=== PATIENT | male | born 1970 | race Caucasian/White ===

== ENCOUNTER 2017-01-17 16:11 | Observation (INO) | payer BC, OTHER ==
--- NOTE | 2017-01-17 16:26 | CPEKG ---
Heart Rate: 65 RR Interval: 923 P-R Interval: 168 QRSD Interval: 86 QT Interval: 384 QTC Interval: 400 P Greer: 54 QRS Greer: 70 T Wave Greer: 20 EKG Severity - ABNORMAL ECG - EKG Impression: SINUS RHYTHM EKG Impression: CONSIDER LEFT VENTRICULAR HYPERTROPHY Electronically Signed By: Dhaval Carroll 17-Jan-2017 19:31:01
[2017-01-17 17:01] LABS: % IMMATURE GRANULYOCYTES 0.4 % (0.0-1.1); ABSOLUTE IMMATURE GRANULOCYTES 0.03 10^3/uL (0.00-0.10); ADD DIFF? NO; ADD MORPH? NO; ADD SCAN? NO; ATYPICAL LYMPHOCYTE FLAG 10 (0-99); FRAGMENT RBC FLAG 0 (0-99); HEMATOCRIT 44.4 % (40.0-51.0); HEMOGLOBIN 15.4 g/dL (13.7-17.5); LEFT SHIFT FLG 0 (0-99); LIPEMIA HEMOLYSIS FLAG 90 (0-99); MEAN CELL HEMOGLOBIN 31.2 pg (27.9-34.1); MEAN CELL HEMOGLOBIN CONCENTR. 34.7 g/dL (32.4-36.7); MEAN CELL VOLUME 90.1 fL (81.5-99.8); MEAN PLATELET VOLUME 10.8 fL (8.7-11.7); PLATELET CLUMPS FLAG 0 (0-99); PLATELET COUNT 210 10^3/uL (150-400); RED BLOOD CELL COUNT 4.93 10^6/uL (4.40-6.38); RED CELL DISTRIBUTION WIDTH 11.9 % (11.5-15.2)
--- NOTE | 2017-01-17 17:01 | EDPHY ---
H & P Time Seen by Provider: 01/17/17 16:42 HPI/ROS: CHIEF COMPLAINT: Chest pressure HISTORY OF PRESENT ILLNESS: This 46-year-old man presents with chest discomfort after running at lunch for about 45 min at 11:30 a.m.. Afterwards he said he usually feels good but today he felt "off "and a little bit lightheaded. He was mild shortness of breath like he was "at high altitude " and had some tingling in his left small finger. He describes pressure in his left chest radiating to his back like a "pulled muscle "this started all around 12:45 p.m.. Patient says symptoms are almost gone now. Not better worse with deep breathing but a little bit better when he fully extends his back. Not associated with cough or hemoptysis or leg swelling or fever or chills. Radiation to the left little finger as described above. REVIEW OF SYSTEMS: Eye: no change in vision ENT: no sore throat Cardiac: HPI no palpitations or syncope Pulmonary: No coughing or hemoptysis Abdomen: no vomiting, diarrhea, abdominal pain Musculoskeletal: no back pain Skin: no rash Neuro: no headache Constitutional: no fever : no urinary symptoms A comprehensive 10 point review of systems is otherwise negative aside from elements mentioned in the history of present illness. PAST MEDICAL HISTORY: Cholesterol around 200. Denies hypertension or diabetes. Testicular cancer 10 years ago. Social history: No cocaine or tobacco. Recent travel return from [place] 5 days ago by car. General Appearance: Alert and conversant, cooperative. Eyes: No scleral icterus. ENT, Mouth: Normal mucous membranes. Respiratory: Normal respiratory effort, breath sounds equal, lungs are clear to auscultation. Cardiovascular: Regular rate and rhythm. Gastrointestinal: Abdomen is soft and non tender. Neurological: Alert and oriented x3. Normally conversant. Face symmetric, normal movement and sensation in all extremities. Skin: Warm and dry, no rashes. Musculoskeletal: No peripheral edema and no joint swelling. No calf tenderness. Psychiatric: Not agitated. Emergency Department course/MDM: Plan EKG, chest x-ray, troponin and D-dimer. 1803: D-dimer less than 0.5, low pretest probability for pulmonary embolism. Troponin noted at 0.019, 3 hr troponin discussed with the patient. 2038: Discussed with cardiology Dr. Babb, recommends admit and cycle troponins, inpatient evaluation. 2049: Have discussed with the patient who is amenable, oral aspirin given. Maria De Jesus at 2055 will admit. Smoking Status: Never smoked Constitutional: Initial Vital Signs Temperature (C) 37.0 C 01/17/17 16:14 Heart Rate 68 01/17/17 16:14 Respiratory Rate 16 01/17/17 16:14 Blood Pressure 142/85 H 01/17/17 16:14 O2 Sat (%) 98 01/17/17 16:14 O2 Delivery Mode Room Air Allergies/Adverse Reactions: No Known Allergies Allergy (Unverified 01/17/17 16:14) Home Medications: Medication Instructions Recorded NK [No Known Home Meds] 01/17/17 Medical Decision Making - Diagnostics EKG Interpretation: 12-lead EKG interpreted by me; official reading is in trace master. My interpretation is sinus rhythm with LVH at 65, no acute ischemic changes. 193: 12-lead EKG interpreted by me; official reading is in trace master. My interpretation is sinus rhythm with probable early repolarization and LVH. Rate 54 Imaging Results: Imaging Impressions Chest X-Ray 01/17/17 16:58 Impression: No acute findings in the chest. Differential Diagnosis: Differential diagnosis considered for chest pain including but not limited to myocardial ischemia, aortic dissection, pericarditis, pulmonary embolus, chest wall pain, pleural inflammation and pulmonary infectious causes. - Data Points Laboratory Results: Laboratory Results 01/17/17 16:32 01/17/17 16:32 01/17/17 01/17/17 01/17/17 19:31 17:13 16:32 WBC RBC Hgb Hct MCV MCH MCHC RDW Plt Count MPV Neut % (Auto) Lymph % (Auto) [place] % (Auto) Eos % (Auto) Baso % (Auto) Nucleat RBC Rel Count Absolute Neuts (auto) Absolute Lymphs (auto) Absolute Monos (auto) Absolute Eos (auto) Absolute Basos (auto) Absolute Nucleated RBC Immature Gran % Immature Gran # D-Dimer 0.39 ug/mLFEU ug/mLFEU (0.00-0.50) Sodium 141 mEq/L mEq/L (134-144) Potassium 4.1 mEq/L mEq/L (3.5-5.2) Chloride 99 mEq/L mEq/L (97-110) Carbon Dioxide 28 mEq/l mEq/l (22-31) Anion Gap 14 mEq/L mEq/L (8-16) BUN 14 mg/dL mg/dL (7-23) Creatinine 1.0 mg/dL mg/dL (0.7-1.3) Estimated GFR > 60 Glucose 88 mg/dL mg/dL (70-100) Calcium 9.6 mg/dL mg/dL (8.5-10.4) Troponin I 0.028 ng/mL ng/mL 0.019 ng/mL ng/mL (0.000-0.034) (0.000-0.034) 01/17/17 16:32 WBC 7.90 10^3/uL 10^3/uL (3.80-9.50) RBC 4.93 10^6/uL 10^6/uL (4.40-6.38) Hgb 15.4 g/dL g/dL (13.7-17.5) Hct 44.4 % % (40.0-51.0) MCV 90.1 fL fL (81.5-99.8) MCH 31.2 pg pg (27.9-34.1) MCHC 34.7 g/dL g/dL (32.4-36.7) RDW 11.9 % % (11.5-15.2) Plt Count 210 10^3/uL 10^3/uL (150-400) MPV 10.8 fL fL (8.7-11.7) Neut % (Auto) 69.5 % % (39.3-74.2) Lymph % (Auto) 19.9 % % (15.0-45.0) [place] % (Auto) 8.4 % % (4.5-13.0) Eos % (Auto) 1.5 % % (0.6-7.6) Baso % (Auto) 0.3 % % (0.3-1.7) Nucleat RBC Rel Count 0.0 % % (0.0-0.2) Absolute Neuts (auto) 5.50 10^3/uL 10^3/uL (1.70-6.50) Absolute Lymphs (auto) 1.57 10^3/uL 10^3/uL (1.00-3.00) Absolute Monos (auto) 0.66 10^3/uL 10^3/uL (0.30-0.80) Absolute Eos (auto) 0.12 10^3/uL 10^3/uL (0.03-0.40) Absolute Basos (auto) 0.02 10^3/uL 10^3/uL (0.02-0.10) Absolute Nucleated RBC 0.00 10^3/uL 10^3/uL (0-0.01) Immature Gran % 0.4 % % (0.0-1.1) Immature Gran # 0.03 10^3/uL 10^3/uL (0.00-0.10) D-Dimer Sodium Potassium Chloride Carbon Dioxide Anion Gap BUN Creatinine Estimated GFR Glucose Calcium Troponin I Medications Given: Discontinued Medications Aspirin (Aspirin) 324 mg PO EDNOW ONE Stop: 01/17/17 20:51 Last Admin: 01/17/17 20:53 Dose: 324 mg Aspirin (Aspirin) 324 mg PO EDNOW ONE Stop: 01/17/17 20:51 Last Admin: 01/17/17 20:51 Dose: Not Given Departure - Departure Disposition: [facility] Inpatient Acute Clinical Impression: Chest pain Qualifiers: Chest pain type: unspecified Qualified Code(s): R07.9 - Chest pain, unspecified Condition: Good
[2017-01-17 17:11] LABS: ANION GAP 14 mEq/L (8-16); CALCIUM 9.6 mg/dL (8.5-10.4); CARBON DIOXIDE 28 mEq/l (22-31); CHLORIDE 99 mEq/L (97-110); GLOMERULAR FILTRATION RATE > 60; GLUCOSE 88 mg/dL (70-100); POTASSIUM 4.1 mEq/L (3.5-5.2); SODIUM 141 mEq/L (134-144)
[2017-01-17 17:23] LABS: TROPONIN I 0.019 ng/mL (0.000-0.034)
--- NOTE | 2017-01-17 19:38 | CPEKG ---
Heart Rate: 54 RR Interval: 1111 P-R Interval: 180 QRSD Interval: 92 QT Interval: 404 QTC Interval: 383 P [place]: 68 QRS [place]: 72 T Wave [place]: 39 EKG Severity - ABNORMAL ECG - EKG Impression: SINUS RHYTHM EKG Impression: CONSIDER LEFT VENTRICULAR HYPERTROPHY EKG Impression: ST ELEV, PROBABLE NORMAL EARLY REPOL PATTERN Electronically Signed By: Dhaval Carroll 17-Jan-2017 19:53:01
[2017-01-17] MEDS ORDERED: ASPIRIN 81 MG CHEWABLE TAB PO ONE ×2 (20:50)
[2017-01-17] MEDS ORDERED: ONDANSETRON DISINTEGRATING 4 MG TAB PO PRN (20:56)
[2017-01-17] MEDS ORDERED: ONDANSETRON 4 MG/2 ML VIAL IVP PRN (20:56)
[2017-01-17] MEDS ORDERED: ACETAMINOPHEN 325 MG TAB PO PRN (20:56)
--- NOTE | 2017-01-17 22:28 | GHP ---
[f rep st] HISTORY AND PHYSICAL DATE OF ADMISSION: 01/17/2017 CHIEF COMPLAINT: Chest pain. HISTORY OF PRESENT ILLNESS: A 46-year-old male with limited past medical history who reports having upper respiratory and GI illness recently which kept him from his normal running activity which avera ges approximately 25 miles a week. The patient had several days of rest related to the gastroenterit is and then got back to running today. Reports he went for a rather strenuous run. As he was comple ting his exercise, developed left-sided chest discomfort and a numbness sensation of his left small p inky. The patient had associated shortness of breath with these symptoms which prompted his evaluati on in the emergency department. During my evaluation, the patient's chest symptoms and finger numbne ss have resolved. He is feeling his normal self. No difficulty with breathing, dizziness, headache, changes in his bowels, urinary complaints, lower extremity edema, fevers or rashes. PAST MEDICAL HISTORY: Borderline hyperlipidemia. SOCIAL HISTORY: A 7-pack-year history of smoking. Quit 20 years ago. No alcohol. No illicit drugs or marijuana. FAMILY HISTORY: Negative for heart disease. REVIEW OF SYSTEMS: A 10-point review of systems are negative with the exception of what is reported in the HPI. PHYSICAL EXAMINATION: VITAL SIGNS: Blood pressure 124/84, heart rate 68, respiratory rate 16, 95% o n room air, 37.0. GENERAL: This is a very healthy-appearing, middle-aged male in no acute distress. HEENT: Notable for moist mucous membranes. Eyes: Negative for any icterus. CARDIAC: Patient is regular rate and rhythm. No murmurs, gallops, or rubs. PULMONARY: Clear to auscultation bilateral ly. GASTROINTESTINAL: Positive bowel sounds. ABDOMEN: Soft and nontender. MUSCULOSKELETAL: Nega tive for any lower extremity edema. SKIN: Negative for any rashes. NEUROLOGIC: He is alert and or iented x3. PSYCHIATRIC: He is pleasant and cooperative on interview and examination. LABORATORY DATA: White count 7.9, creatinine 1.0. Troponin is 0.019 to 0.028. EKG, which I personally reviewed and interpreted, shows sinus rhythm. No acute ST-T changes. Chest x-ray, which I personally reviewed and interpreted, shows no acute infiltrates or edema. ASSESSMENT AND PLAN: This is a 46-year-old male presenting with chest pain, post exertion. 1. Acute chest pain. The patient's only significant risk factor is remote tobacco for heart disease . Initial troponin is technically negative, although rising. EKG is also negative. The case was re viewed with Cardiology. Dr. Babb is requesting the patient be admitted for rule out and provocativ e testing in the morning. I have ordered a treadmill as I suspect the patient's troponins will remai n negative early this a.m. 2. Prophylaxis: Patient is ambulating. 3. Diet: Cardiac. 4. Disposition: I expect less than 2 midnights. I have discussed the case with the emergency room physician. Patient will be triaged to the PCU for stress testing. /[id number]/MODL
[2017-01-18 05:10] LABS: CHOLESTEROL 135 mg/dL (140-200); CHOLESTEROL/HDL RATIO 3.46 RATIO (1.00-4.97); HIGH DENSITY LIPOPROTEIN 39 mg/dL (40-65); LDL/HDL RATIO 2.05 RATIO (1.00-3.64); LOW DENSITY LIPOPROTEIN 80 mg/dL (70-100); NON-HIGH DENSITY LIPOPROTEIN 96 mg/dL (90-129); TRIGLYCERIDE 83 mg/dL (40-150); VERY LOW DENSITY LIPOPROTEINS 16 mg/dL (8-25)
[2017-01-18 05:18] LABS: TROPONIN I 0.015 ng/mL (0.000-0.034)
[2017-01-18 07:34] VITALS: BP 113/69; PULSE 59; RESP 17; TEMP 97.5; O2SAT 92
--- NOTE | 2017-01-18 09:03 | GCON ---
[f rep st] CONSULTATION CARDIAC CONSULTATION DATE OF CONSULTATION: 01/18/2017 CHIEF COMPLAINT: Arm pain, chest pain after running. HISTORY OF PRESENT ILLNESS: This is a 46-year-old gentleman with no known history of coronary artery disease and no significant risk factors, who usually runs 25 miles a week. He recently had a GI ill ness, had not run in over a week. Yesterday, at work, he went for a run at lunch and noted some exer tional left little finger numbness, he ran, as he describes as "hard," after returning to work he had some left shoulder blade pain which was on and on, and over the course of the next few hours had mauri e just diffuse fullness in his chest. He came to the emergency room for evaluation. EKG and exam we re normal. His troponin was mildly indeterminate. He has borderline hypertension as his only risk f actor. SOCIAL HISTORY: A very remote history of cigarette smoking 20 years ago. No alcohol or drug abuse i ssues. FAMILY HISTORY: Noncontributory. REVIEW OF SYSTEMS: A 10-point system is negative. The only recent thing going on was his upper GI i llness, which has resolved. Overnight he was admitted to the hospital and did well. His troponins have decreased. His cholester ol is 135, his HDL is 39, his LDL is 80. He has a normal creatinine. EKGs show normal sinus rhythm without ischemic changes or changes on serial evaluation. EXAM: VITAL SIGNS: Blood pressure is 120/65, his heart rate in the 70s. GENERAL: He is a middle-a ged male, in no acute distress. HEENT: Moist oropharynx. NECK/SHOULDERS: No palpable tenderness. LUNGS: Clear to auscultation. CARDIOVASCULAR: Regular rate and rhythm. Peripherally he had stron g pulses in his feet and in his hands. He had good strength in both arms as well. ABDOMEN: Soft, n ontender. ASSESSMENT: Atypical chest pain. At this point, no clear-cut indication of cardiac etiology. Renay monae has agreed to progress with an exercise stress test this morning. If this is normal he can be dis charged, to follow up with his primary care physician as indicated. At this point, I did answer many questions, and the patient is comfortable with this approach. He has normal exam and asymptomatic a t this time. /[id number]/MODL
[2017-01-18] MEDS ORDERED: PSEUDOEPHEDRINE HCL 30 MG TAB PO PRN (09:54)
--- NOTE | 2017-01-18 10:30 | CPR ---
[f rep st] NONINVASIVE CARDIAC PROCEDURE REPORT DATE OF PROCEDURE: 01/18/2017 PROCEDURE: Exercise treadmill test. INDICATION: The patient is a 46-year-old male, who presented to the hospital with chest pain. He is a very active individual and went for a run yesterday. Post exercise he developed chest discomfort and shortness of breath. He does note that he had an upper respiratory infection the week prior. He denies any history of hypertension, hyperlipidemia, diabetes, prior tobacco use or family history of premature coronary artery disease. His resting EKG revealed normal sinus rhythm with heart rate of 57, OR interval 162, QRS duration of 102, QTc of 421. He has nonspecific upsloping ST elevation at rest. The patient exercised on the [employer] for 11 minutes without any associated chest discomfort. The second stage of the Pacheco protoc ol was skipped. He remained in normal sinus rhythm throughout the procedure. He did develop upslopi ng ST depression in leads V4 and V5 at peak exertion which recovered immediately in the recovery phas e. His blood pressure at rest was 128/70 and increased appropriately peaking at 158/62. His blood p ressure recovered within 4 minutes of recovery. PLAN: Normal exercise treadmill test. /[id number]/MODL
--- NOTE | 2017-01-18 11:45 | ASMTCMCOM ---
CM Note CM Note Notes: Patient discharging home with no additional apparent Case management needs at this time. Date Signed: 01/18/2017 11:44 AM Electronically Signed By:LEEANNA Ross
--- NOTE | 2017-01-18 12:15 | GDS ---
[f rep st] DISCHARGE SUMMARY DIAGNOSIS: Chest pain, noncardiac. CONSULTATIONS: Cardiology, Dr. Amadou Schmid. PROCEDURES DONE: Exercise stress test, normal. HOSPITAL COURSE: The patient is a 46-year-old, healthy man who complained of chest and arm pain afte r running. He has no known history of heart disease, no risk factors, and usually runs about 25 mile s a week. He recently had a viral illness with GI symptoms and had not run for over a week. Yesterd ay he was feeling good. He went for a run, which was faster and harder than usual, including some hi lls. After returning to work, he had some left shoulder blade pain, which was on and off, and some d iffuse fullness in his chest. He came to the emergency department; initial evaluation included EKG a nd troponin, which were unremarkable, and he was admitted overnight. Telemetry was unremarkable. Tr oponins were flat and negative. He underwent a treadmill stress test this morning and did well, with out any abnormalities. It is thought that his risk is low and he can be discharged home with followu p with his primary care provider. CONDITION ON DISCHARGE: Good. DISCHARGE MEDICATIONS: See discharge medication form. FOLLOWUP: He can follow up with his primary care provider in a couple weeks. He should try not to o verexert himself until he has completely improved from his viral illness. /[id number]/MODL
== END 2017-01-18 11:55 | disposition home or self-care (01) ==
LOC: F2W 22:44
PROVIDERS: ADMIT Hospitalist; ATTEND Internal Medicine
DX: R07.89 Other chest pain (principal); Z87.891 Personal history of nicotine dependence
CPT/HCPCS: 71020; 93005; 93017; 99285; G0378